=== PATIENT | male | born 1935 | race Caucasian/White ===

== ENCOUNTER 2018-10-23 08:34 | Inpatient (IN) | payer MEDICARE ==
[~2018-10-23] VITALS: Ht 167.6 cm; Wt 103.5 kg
[2018-10-23 08:37] VITALS: Ht 167.6 cm; Wt 103.5 kg
--- NOTE | 2018-10-23 08:43 | NUR ---
PT WAS BROUGHT IN BY AMBULANCE W/CC OF ALOC. PER MEDICS " FOUND HIM ALTERED THIS MORNING". PT ARRIVED ALTERED AND ON NON-REBREATHER MASK. LABORED BREATHING PRESENT. COURSE CRACKLES AND RHONCI AUSCULTATED. PT'S SKIN IS HOT TO TOUCH. DR. WORTHINGTON AT BEDSIDE FOR MSE. RT ALSO AT BEDSIDE. WILL CTM.
--- NOTE | 2018-10-23 09:08 | NUR ---
MEDICATED ORDERED. PLEASE SEE EMR. 1L OF NS INFUSING PER SEPSIS PROTOCOL.
[2018-10-23 09:09] LABS: UA SPECIFIC GRAVITY 1.015 (1.005-1.035); microscopic required? YES; urine erythrocyte TRACE (NEGATIVE)
[2018-10-23 09:14] LABS: PLATELET COUNT 435 x10^3mcL (130-400); RED CELL DISTRIBUTION WIDTH 21.4 % (11.5-14.5)
[2018-10-23 09:30] LABS: CALCIUM 9.3 mg/dL (8.5-10.1); CARBON DIOXIDE 27.5 mmol/L (21-32); CHLORIDE SERUM 104 mmol/L (98-107); CREATININE SERUM 1.2 mg/dL (0.7-1.3); GLUCOSE SERUM 116 mg/dL (74-106); POTASSIUM SERUM 3.1 mmol/L (3.5-5.1); SODIUM SERUM 141 mmol/L (136-145)
[2018-10-23 09:33] LABS: AMPHETAMINE QUAL UR NONE DETECTED (See below)
[2018-10-23 09:34] LABS: ALKALINE PHOSPHATASE 121 U/L (46-116); ALT/SGPT 18 U/L (16-63); AST/SGOT 27 U/L (15-37); TOTAL PROTEIN, SERUM 6.7 g/dL (6.4-8.2)
--- NOTE | 2018-10-23 09:38 | NUR ---
MEDICATED ORDERED. PLEASE SEE EMR.
--- NOTE | 2018-10-23 09:38 | NUR ---
AT BEDSIDE STS PT HAD STROKE RECENTLY AND HAS LEFT SIDED WEAKNESS. REPORTS PT USES WALKER TO AMBULATE AND HAD A MECHANICAL SLIP AND FALL. DENIES LOC AT THE TIME OF FALL. NO OBVIOUS DEFORMITY NOTED TO EXTREMETIES. PT'S STS PT IS USUALLY A/O X4 AND GCS 15. DR. WORTHINGTON MADE AWARE. WILL CTM.
[2018-10-23 09:45] LABS: ALBUMIN 3.2 g/dL (3.4-5.0)
--- NOTE | 2018-10-23 09:45 | NUR ---
DR. WORTHINGTON MADE AWARE OF DECREASED BP AND O2 SAT WHILE ON 4L OF O2 VIA NC.
[2018-10-23] MEDS ORDERED: FUROSEMIDE40 MG PO (09:46)
[2018-10-23] MEDS ORDERED: TAMSULOSIN HYD0.4 M1 PO (09:47)
[2018-10-23] MEDS ORDERED: MIRAPEX0.25 MG PO (09:47)
[2018-10-23] MEDS ORDERED: LIPI10 PO (09:47)
[2018-10-23] MEDS ORDERED: NEU300 PO (09:48)
[2018-10-23] MEDS ORDERED: SINGULAIR10 MG PO (09:48)
[2018-10-23 09:57] LABS: BAND NEUTROPHIL 9 % (0-10); BASOPHIL 0 % (0-2); MONOCYTE 5 % (0-7); SEGMENTED NEUTROPHILS 85 % (37-75)
[2018-10-23 09:59] LABS: PLATELET MORPHOLOGY PLATELETS INCREASED; rbc morphology (normal/abnorm) ABNORMAL (NORMAL)
--- NOTE | 2018-10-23 10:19 | NUR ---
MEDICATED ORDERED. PLEASE SEE EMR.
--- NOTE | 2018-10-23 10:24 | NUR ---
PT RESPONDING TO SIMPLE COMMANDS SUCH "OPEN EYES, OPEN MOUTH, STICK OUT TONGUE". PT CONTINUES TO BE NON-VERBAL. PT'S NC SWITCHED TO MASK AND O2 INCREASED TO 10L DUE TO 88% SPO2 ON 4L OF O2 VIA NC.
--- NOTE | 2018-10-23 10:28 | NUR ---
PT AWAKE AND ALERT. ABLE TO ANSWER SIMPLE QUESTIONS. ASKING WHAT TIME IT IS. ABLE TO TAKE ORAL TEMPERATURE. DR. WORTHINGTON MADE AWARE.
[2018-10-23 11:08] LABS: MAGNESIUM 1.7 mg/dL (1.8-2.4); PHOSPHOROUS 1.9 mg/dL (2.5-4.9)
--- NOTE | 2018-10-23 11:41 | NUR ---
PT ACCIDENTALLY DC'D LFA IV. SITE CLEANSED AND BANDAID APPLIED. NS FLUIDS AND ANTIBIOTIC SWITCHED TO RT WRIST IV SITE. PT TOLERATING WELL. WILL CTM.
--- NOTE | 2018-10-23 12:22 | NUR ---
REPORT GIVEN TO ELI KILLIAN TO ASSUME CARE OF PT.
--- NOTE | 2018-10-23 12:40 | NUR ---
PT ARRIVED TO UNIT FROM ER VIA GURNEY ACCOMPANIED BY PERSONAL LINES UNDERWRITER AND EMT. PT ABLE TO SCOOT TO ICU BED WITH NO INCIDENT. PT A/O TO NAME, , DATE AND SITUATION. SPEECH IS NOTED TO BE GARBLED, PT HAS HX OF CVA WITH LEFT SIDED WEAKNESS. ABLE TO FOLLOW ALL COMMANDS AND MAKE NEEDS KNOWN. ON NON-REBREATHER MASK 15L O2 WITH O2 SAT 99%. BREATH SOUNDS ALSCULATED CRACKLES/RHONCHI BILAT. BREATHING SLIGHTLY LABORED WITH RR 27. DENIES ANY SOB OR RESP DISTRESS. HOB ELEVATED. PT WITH SOME CONGESTION NOTED, BUT NO ACTIVE COUGH. ENCOURAGED PT TO COUGH UP ANY PHLEGM. NSR WITH OCCASIONAL PAC'S NOTED ON PETROLEUM ENGINEERING TEACHER. NIBP 86/38 MAP 67 HR 62. DENIES ANY CHEST PAIN OR DISCOMFORT. IVF NS AT 150ML/HR INFUSING VIA IV TO RIGHT WRIST. IV SITE PATENT AND CLEAR. BOWEL SOUNDS ACTIVE X 4 QUADRANTS. ABD OBESE/SOFT. DENIES ANY N/V. HERNANDEZ CATH DRAINING WAYNE URINE FREELY TO GRAVITY. SKIN INTACT WITH PURPLE DISCOLORATION TO LFA NOTED. NO ACTIVE/OPEN WOUNDS. NO EDEMA NOTED. PULSES MODERATE BILAT THROUGHOUT. PT ORIENTED TO ROOM AND CALL LIGHT. BED IN LOW POSITION SIDE RAILS UP X3. CALL LIGHT IN REACH. WILL CONT TO MONITOR.
--- NOTE | 2018-10-23 12:49 | NUR ---
Total fluid resuscitation amount ordered for patient is 3000 mls. At time of admission/transfer to ICU BED 8, 3000 mls have infused. Last BP was 101/60 and ELI KILLIAN is aware that BP will need to be reassessed after fluid infusion completed.
[2018-10-23 14:19] VITALS: BP 86/38
--- NOTE | 2018-10-23 14:56 | NUR ---
BEDSIDE NURSING SWALLOW SCREEN DONE AT THIS TIME. PT ABLE TO EAT APPLESAUCE, SWALLOW ICE CHIPS AND DRINK WATER WITH NO COUGHING NOTED. PT IN HIGH AVERY'S POSITION. CALL LIGHT IN REACH. WILL CONT TO MONITOR.
[2018-10-23 16:59] VITALS: BP 112/72
--- NOTE | 2018-10-23 18:10 | NUR ---
DR RIOS AT BEDSIDE. ALL UPDATES GIVEN. PER DR RIOS, HEPARIN TO BE STARTED ON PATIENT. NO FURTHER ORDERS.
--- NOTE | 2018-10-23 18:56 | NUR ---
PT BOLUSED WITH 6,000 UNITS HEPARIN IVP AND INITIATED HEPARIN DRIP AT 1,200 UNITS/HR PER HEPARIN DRIP PROTOCOL. PTT FOR 0100. PRIMARY RN MADE AWARE.
--- NOTE | 2018-10-23 19:06 | NUR ---
REPORT GIVEN TO ELI SMITH ALL QUESTIONS ANSWERED.
[2018-10-23 19:15] VITALS: BP 119/69
--- NOTE | 2018-10-23 19:15 | NUR ---
RECEIVED PT AOX3 TO PERSON/PLACE/TIME, ABLE TO RESPOND TO COMMANDS AND MAKE NEEDS KNOWN. PT APPEARS RESTLESS AND CONFUSED AT TIMES. PUPIS 2MM SLUGGISH RESPONSE TO LIGHT B/L, PERRLA.TRACHEA MIDLINE, NO DRAINAGE TO EENT. NO EENT COMPLAINTS. LUNG SOUNDS COARSE CRACKLES BUL, DIMINISHED BASES. PT ON 15 VENTURI MASK @ 50% FIO2. CHEST RISE/FALL SYMMETRIC, PT BREATHING TACHYPNEIC.S1/S2 SOUNDS HEARD, NO S/S OR REPORT OF CHST PAIN. PT ON FULL MEMBERSHIP DIRECTOR, SINUS TACH WITH OCCASSIONAL PVC'S.SKIN COLOR CONSISTENT WITH ETHNICITY. PULSES MODERATE X4 EXTREMITIES, CAP REFILL <3 SEC X4 EXTREMITIES. NO EDEMA. NS INFUSING @ 150 ML/HR. HEPARIN GTT @ 1200 UNITS/HR.GEN WEAKNESS. BED REST AT THIS TIME. NO CONTRACTURES/DEFORMITIES, PT ABLE TO TURN/REPOSITION SELF Q2H. NO JOINT SWELLING/TENDERNESS. HX OF RESTLESS LEG SYNDROME.PUREED DIET. NO S/S OF N/V.HYPOACTIVE BOWEL SOUNDS X4 QUADRANTS, ABD FIRM/ROUND. NO BM AT THIS TIME.F/C DRAINING TO GRAVITY WAYNE URINE. NO PENILE EDEMA/DISCHARGE NOTED.IV TO RIGHT FOREARM, RIGHT WRIST, PORTS PATENT, NO S/S OF INFILTRATION DRESSING CDI. LEFT FOREARM DISCOLORATION NOTED, BLE SCATTERED ECCHYMOSIS.PT RESTLESS AT THIS TIME, RELAXATION TECHNIQUES USED. BED AT LOWEST SETTING, CALL LIGHT WITHIN REACH, HOB ELEVATED 30 DEGREES, TEACHING PROVIDED, WILL CONT TO MONITOR.
--- NOTE | 2018-10-23 19:40 | NUR ---
DR. WALL AT BEDSIDE FOR ASSESSMENT SPEAKING WITH PATIENT ON POC AND EVENTS LEADING UP TO HOSPITAL STAY. UPDATES PROVIDED, QUESTIONS ANSWERED. PER DR. WALL ORDER C-DIFF STOOL CULTURE IF PT HAS A BOWEL MOVEMENT, WILL INPUT ORDERS.
--- NOTE | 2018-10-23 20:55 | NUR ---
RICKY GIBBS AT BEDSIDE FOR BREATHING TREATMENT.
--- NOTE | 2018-10-23 21:15 | NUR ---
RT RICKY CHANGED OXYGEN DEVICE TO 5L OXYMIZER. PT SATURATING NOW @ 97%, NO S/S OR REPORT OF RESP DISTRESS, DENIES SOB AT THIS TIME. WILL CONT TO MONITOR.
--- NOTE | 2018-10-23 22:53 | NUR ---
PT HAD A SMALL FORMED BROWN BM, PT PERIAREA CLEANED AND STOOL SENT TO LAB FOR C-DIFF CULTURE PER DR. WALL. WILL CONTINUE TO MONITOR.
[2018-10-23 23:08] VITALS: BP 115/69
--- NOTE | 2018-10-24 01:30 | NUR ---
PT HAD A SMALL FORMED BROWN BM, PT STATING "GET IT OUT!". PT PERIAREA CLEANED AT THIS TIME.
--- NOTE | 2018-10-24 02:38 | NUR ---
LAB CALLED, PTT 94.0. HEPARIN GTT INFUSION HELD AT THIS TIME FOR ONE HOUR AND WILL TITRATE TO 900 UNITS/HR AND ORDER PTT PER HEPARIN DRIP PROTOCOL.
[2018-10-24 02:46] VITALS: BP 115/69
[2018-10-24 03:01] VITALS: BP 92/59
--- NOTE | 2018-10-24 03:38 | NUR ---
HEPARIN GTT TURNED BACK ON, TITRATED TO 900 UNITS/HR PER HEPARIN DRIP PROTOCOL. WILL ORDER NEXT PTT.
--- NOTE | 2018-10-24 03:42 | NUR ---
PT HAD A MODERATE FORMED BROWN BM, PT STATING "GET IT OUT!". PT PERIAREA CLEANED AT THIS TIME.
--- NOTE | 2018-10-24 05:06 | NUR ---
GANTRY CRANE OPERATOR АННА AT BEDSIDE FOR BLOOD DRAW.
[2018-10-24 05:30] LABS: BASOPHIL % 0.1 % (0-2)
[2018-10-24 05:31] LABS: PLATELET COUNT 405 x10^3mcL (130-400); RED CELL DISTRIBUTION WIDTH 21.9 % (11.5-14.5)
--- NOTE | 2018-10-24 05:36 | NUR ---
DR. BOYD MADE AWARE VIA TELEPHONE OF PTS CRITICAL LAB VALUE OF WBC 47.6. NO NEW ORDERS AT THIS TIME.
[2018-10-24 05:47] LABS: CALCIUM 7.7 mg/dL (8.5-10.1); CARBON DIOXIDE 27.9 mmol/L (21-32); CHLORIDE SERUM 105 mmol/L (98-107); CREATININE SERUM 1.1 mg/dL (0.7-1.3); GLUCOSE SERUM 150 mg/dL (74-106); MAGNESIUM 1.8 mg/dL (1.8-2.4); PHOSPHOROUS 3.2 mg/dL (2.5-4.9); POTASSIUM SERUM 4.4 mmol/L (3.5-5.1); SODIUM SERUM 140 mmol/L (136-145)
--- NOTE | 2018-10-24 06:10 | NUR ---
UPDATED DR. BONILLA ON PT'S STATUS AND LAB VALUES. NO NEW ORDERS AT THIS TIME.
--- NOTE | 2018-10-24 06:34 | NUR ---
DR. BONILLA AT BEDSIDE ASSSESING PT AND SPEAKING WITH PT ON POC.
--- NOTE | 2018-10-24 07:10 | NUR ---
GAVE REPORT TO ELI LEE. UPDATES GIVEN, QUESTIONS ANSWERED.
--- NOTE | 2018-10-24 07:30 | NUR ---
RC'D PT RESTING IN BED WITH NO APPARENT SIGNS OF DISTRESS. A/A/O/X4, SPEECH CLEAR AND APPROPRIATE. DENIES SHEPHERD/DIZZINESS. EQUAL CHEST RISE/FALL. PT ON 5L O2 VIA OXYMIZER. ON CARDIA MONITOR WITH NSR. DENIES CHEST PAIN/PRESSURE. HEPARIN DRIP INFUSING AT 900UN AT THIS TIME. WILL ADJUST PER HEPARIN DRIP PROTOCOL. CHEST WALL STABLE. PALP PULSES TO ALL EXTREMITIES. SKIN COLOR CONSISTENT TO ETHNICITY. BLE SCDS. GENERALIZED WEAKNESS. PT ABLE TO REPOSITION SELF. ABDOMEN OBESE AND ROUND. PT DENIES N/V. TOLERATES DIET. HERNANDEZ CATH WITH WAYNE URINE DRAINING TO GRAVITY, WNL. BED IN LOW POSITION. CALL LIGHT IN REACH. WILL CONTINUE TO MONITOR
--- NOTE | 2018-10-24 07:40 | NUR ---
PT REPORTS BM AT THIS TIME, SOFT/FORMED.
--- NOTE | 2018-10-24 08:25 | NUR ---
AM MEDICATIONS GIEN. PT TOLERATED WELL.
[2018-10-24 08:39] VITALS: BP 128/71
--- NOTE | 2018-10-24 09:43 | NUR ---
RC'D CALL FROM JARON SANDHU. PROVIDED WITH UPDATE AND CASE MANAGEMENT INFORMATION
--- NOTE | 2018-10-24 10:39 | NUR ---
PTT 36.9. PER HEPARIN PROTOCOL, PT REBOLUSED WITH HEPARIN 4000UN AND RATE INCREASED BY 200UN/HR. HEPARIN DRIP INFUSING AT 1100UN/HR AT THIS TIME.
[2018-10-24] MEDS ORDERED: LIPITOR80 MG PO (11:06)
[2018-10-24] MEDS ORDERED: ECO81 PO (11:06)
--- NOTE | 2018-10-24 11:24 | NUR ---
RT PRESENT AT BEDSIDE PROVIDING TX AT THIS TIME.
--- NOTE | 2018-10-24 12:31 | NUR ---
PT RESTING IN BED WITH NO APPARENT SIGNS OF DISTRESS. CHEST RISE/FALL EQUAL. ON 5L O2 VIA OXYMIZER, PT DENIES SOB. ON PV DESIGN ENGINEER WITH NSR. PT DENIES CHEST PAIN/PRESSURE. HEPARIN DRIP INFUSING AT 1100UN/HR, PT TOLERATING WELL. WILL ADJUST ACCORDINGLY PER HEPARIN PROTOCOL. NO ACUTE SKIN CHANGES NOTED AT THIS TIME. IV PATENT AND INTACT. HERNANDEZ CATH WITH WAYNE URING DRAINING TO GRAVITY, WNL. BED IN LOW POSITION. CALL LIGHT IN REACH. WILL ENDORSE TO CABINET ASSEMBLER RN
--- NOTE | 2018-10-24 15:45 | NUR ---
RC'D CALL FROM PTS , CALL TRANSFERRED TO PT. PT WITH NO S/S OF DISTRESS. WILL CONT TO MONITOR
--- NOTE | 2018-10-24 15:47 | NUR ---
PTT 37.7 PER HEPARIN PROTOCOL REBOLUS WITH 4000UN AND INCREASE INFUSION RATE 200UN/HR. HEPARIN DRIP INFUSING AT 1300UN/HR AT THIS TIME. RN MIN PRESENT AT BEDSIDE TO VERIFY. PT TOLERATED WELL. DENIES DISCOMFORT AT THIS TIME. WILL CONTINUE TO MONITOR
--- NOTE | 2018-10-24 15:52 | NUR ---
OT PERFORMING SWALLOW EVAL AT BEDSIDE AT THIS TIME. WILL CONT TO MONITOR
--- NOTE | 2018-10-24 15:58 | NUR ---
PER SPEECH THERAPIST, PT DOES NOT HAVE DENTURES AT THIS TIME, TO BRING. SPEECH THERAPIST TO RETURN TOMORROW TO [facility] PT
--- NOTE | 2018-10-24 16:01 | NUR ---
PT WAS SEEN FOR DYSPHAGIA. PT WAS ABLETOS AFELY SWALLOW PUREE DIET WITH THIN LIQUID. HOWEVER, PT HAD MASTICATION SKILLS DIFFICULTY WITH REGULAR DIET RECOMMENDATION PUREE DIET WITH THIN LIQUID SMALL BITES AND SIPS ONLY.
[2018-10-24 16:58] VITALS: BP 118/72
--- NOTE | 2018-10-24 17:44 | NUR ---
PT REPORTS BM AT THIS TIME, LOOSE/SOFT. CLEANED AND REPOSITIONED
--- NOTE | 2018-10-24 18:59 | NUR ---
PT RESTING IN BED WITH NO APPARENT SIGNS OF DISTRESS. A/A/O/X4, SPEECH CLEAR AND APPRORPIATE. DENIES SHEPHERD/DIZZINESS. PT ANXIOUS AT TIMES. EQUAL CHEST RISE/FALL. PTON 5L O2 VIA OXYMIZER, PT DENIES SOB. NO RESP DISTRESS NOTED NO ACUTE SKIN CHANGES NOTED AT THIS TIME. PENDING SWALLOW EVAL WHEN BRINGS PTS DENTURES. CURRENT DIET PUREE AT THIS TIME. NO ACUTE SKIN CHANGES NOTE. IV PATENT AND INTACT. HEPARIN DRIP INFUSING AT 1300UN/HR AT THIS TIME, NEXT PTT TO BE DRAWN AT 1930, WILL ENDORSE TO ECG TECHNICIAN RN. PT ON REFRACTIVE SURGEON WIT NSR, DENIES CHEST PAIN/PRESSURE. PT DENIES PAIN AT THIS TIME. REPORTS FEELING RESTLESS AT TIMES. HERNANDEZ CARE AND PT CLEANED, NEW GOWN AND BEDDING PROVIDED. BED IN LOW PSOTIION. CALL LIGHT IN REACH. WILL ENDORSE TO ECG TECHNICIAN RN
--- NOTE | 2018-10-24 20:00 | NUR ---
Seen and examined by Dr Garza with no new orders. Will continue to monitor.
[2018-10-24 22:03] VITALS: BP 112/78
[2018-10-25] VITALS (8 sets, daily range): BP systolic 123–141; BP diastolic 52–83
--- NOTE | 2018-10-25 00:15 | NUR ---
Seen and examined by Dr. Mei with no new orders. Will continue to monitor.
[2018-10-25 05:37] LABS: BASOPHIL % 0.1 % (0-2); PLATELET COUNT 360 x10^3mcL (130-400)
[2018-10-25 05:43] LABS: CALCIUM 7.9 mg/dL (8.5-10.1); CARBON DIOXIDE 26.5 mmol/L (21-32); CHLORIDE SERUM 106 mmol/L (98-107); GLUCOSE SERUM 151 mg/dL (74-106); MAGNESIUM 2.1 mg/dL (1.8-2.4); PHOSPHOROUS 2.5 mg/dL (2.5-4.9); SODIUM SERUM 140 mmol/L (136-145)
[2018-10-25 05:48] LABS: RED CELL DISTRIBUTION WIDTH 22.6 % (11.5-14.5)
--- NOTE | 2018-10-25 07:25 | NUR ---
AAO X3-4.FORGETFUL AT TIMES.DENIES ANY PAIN/DISCOMFORT.LUNGS DIM BILAT.WITH NON PRODUCTIVE COUGH.ON 5 L OXIMIZER WITH SPO2 AT 100 %. IVF NS GOING AT 150 ML/HR INFUSING WELL.HEPARIN GTT AT 1500 MG/HR INFUSING WELL ON R AC.BUE WITH ECCYMOSIS.HERNANDEZ DRAINING TO GRAVITY YELLOW IN COLOR.CALL LIGHT WITHIN REACH.INSTRUCTED TO CALL FOR ANY PAIN/DISCOMFORT.WILL CONTINUE TO MONITOR PT.
--- NOTE | 2018-10-25 09:15 | NUR ---
PT WHEEZING A LOT.ALSO RESTLESS.DESATED TO 80%.PUT HIM BACK TO OXIMIZER AT 5 L SPO2 WENT UP TO 100 %.PT CALMED DOWN A LITTLE BIT.ALSO PAGED FOR ORDERS AND RT FOR BREATHING TREATMENT.
--- NOTE | 2018-10-25 09:46 | NUR ---
AND AT BEDSIDE.UPDATED PT AND FAMILY ABOUT PT CONDITION AND PLAN OF CARE,PT AND FAMILY VERBALIZES UNDERSTANDING.
--- NOTE | 2018-10-25 09:55 | NUR ---
GAVE PT LASIX 40 MG IVP X 1 ORDERED.ALSO DECREASED FLUID TO NS AT 10 ML/HR ORDERED.WILL CONTINUE TO MONITOR PT.
--- NOTE | 2018-10-25 10:47 | NUR ---
RECHECKED PT CLAIMS TO FEEL A LOT BETTER.
--- NOTE | 2018-10-25 11:00 | NUR ---
PT DIAURESED 860 ML OF URINE AFTER LASIX 40 MG IVP ORDERED.
--- NOTE | 2018-10-25 11:22 | NUR ---
PTT=61.2.NO CHANGES ON THE HEPARIN GTT.RESULT THERAPEUTIC.ORDERED NEXT PTT AT 1330.
--- NOTE | 2018-10-25 11:51 | NUR ---
DAVE CALLED MGT.INFORMED RN THAT SHE GOT THE ORDER ABOUT PT STABLE FOR TRANSFER. WILL HAVE DOCTOR FR SANDHU AND COMMUNICATE THEN SOMEBODY FR. SANDHU WILL CALL THE NURSES STATION FOR BED # AND TRANSPORT.INFORMED CHARGE NURSE CISCO OF THE UPDATE.
--- NOTE | 2018-10-25 12:52 | NUR ---
SPOKE WITH EDINSON AT [facility] AND PROVIDED FAX NUMBER FOR ICU. PER EDINSON, PATIENT WILL BE TRANSFERRED SOME TIME TODAY. AWAITING RETURN TELEPHONE CALL WITH ACCEPTING MD AND ROOM NUMBER. ENDORSED INFORMATION TO PRIMARY RN JANICE.
--- NOTE | 2018-10-25 13:00 | NUR ---
PT TOLERATING 3 L NASAL CANULA WELL.SPO2 @ 96%
--- NOTE | 2018-10-25 14:03 | NUR ---
Initial Nutrition Assessment: IC08/A ARIE ELMORE HR Dx: Sepsis, PNA PMHx: COPD, asthma, BPH, hyperlipidemia and restless leg syndrome, hyperlipedemia PSHx: Hernia repair Labs: BG 151H, CA 7.9L, WBC 24.0H Meds: Aspirin, Flomax, Lipitor, miralex, heparin, Zofran, zosyn Diet: Puree PO Intake: (10/24) 40% average Ht: 167.64 cm (66") Wt: 103.5 kg (227#) BMI: 36.8 kg/m2 (obesity) Bed scale: 227# IBW: 142# (64 kg) %IBW: 159 UBW: 227# Age: 83/M Food Allergies: NKFA Skin: BUE ecchymosis Vincenzo: 19 Edema: none GI: Last BM: 10/25 Per H&P, Pt is a 83 year old male with prior history of COPD, asthma, BPH, hyperlipidemia and restless leg syndrome brought in by paramedics for worsening shortness of breath. Per the patient's , he was scheduled to receive physical therapy in his home but had refused and had become increasingly agitated. RDN Visit (10/25): Pt was alert and oriented with son and at bedside. Pt said that he does not like baby (puree) diet and wants regular food. Patient loves ice-cream and had requested it which was granted. Diet education about COPD and low cholesterol was provided but patient seemed reluctant to make any lifestyle changes. Paged Dr. Robertson to discuss recommendations waiting for call back. Problem with: N/V/D/C: no Problems with: Chewing/Swallowing: no Current appetite: poor Recent wt change: none %wt change: none Vitamin/Supplement use: none Special diet at home: Regular Physical activity: none Nutrition education given: Diet education about COPD and low cholesterol was provided. [facility] handout on 'COPD Nutrition Therapy' was provided. Concepts such as portion control, low fat food choices, healthy eating choices were discussed. Patient seemed reluctant to make any lifestyle changes. Food-drug interactions: Lipitor- avoid grapefruit, Heparin- consistent intake of vitamin K Education given: Yes Estimated Nutritional Needs Based on adjusted body weight 73 kg Energy: 1605-3427 kcal/d (25-30 kcal/kg) Protein: 73-87.6 g/d (1.0-1.2 g/kg)- PNA, preserve LBM Fluid: 4001-4547 ml/d (1 ml/kcal) or per doctor Nutrition Diagnosis 1. Morbid Obesity related to patient not ready to make diet/lifestyle changes as evidenced by BMI 36.8 kg/m2. 2. Increased nutrient needs related to sepsis as evidenced by WBC 24.0. Intervention 1. Recommend progressing to cardiac diet once medically appropriate and tolerated. Monitor/Evaluate Goal: PO intake at least 75% of estimated needs Monitor: PO intake, Labs, GI function F/U in 3-5 days as moderate risk 10/28-
--- NOTE | 2018-10-25 14:03 | NUR ---
1. Recommend progressing to cardiac diet once medically appropriate and tolerated.
--- NOTE | 2018-10-25 14:15 | NUR ---
PT HAD A LARGE BM.CLEANED AND MADE HIM COMFORTABLE.PT SLEPT AFTER.
--- NOTE | 2018-10-25 14:40 | NUR ---
PATIENT'S PTT 58.0.. PATIENT ON HEPARIN DRIP AND THERAPEUTIC X 2. PRIMARY RN ELISA MADE AWARE.
--- NOTE | 2018-10-25 14:41 | NUR ---
PTT=58.0.RESULT THERAPEUTIC PER HEPARIN PROTOCOL.NO CHANGE IN CURRENT RATE.ORDERED NEXT PTT AT 0500 TOMORROW.
--- NOTE | 2018-10-25 16:07 | NUR ---
PT COMFORTABLE NO COMPLAINTS.
--- NOTE | 2018-10-25 17:18 | NUR ---
GOT A CALL FROM EDINSON.PT HAS A BED IN [facility] [id number] AND THE PHONE TO GIVE REPORT IS TEL#[phone].AND RECEIVING DRCelestinaIS AND CUSTOMER PROGRAM MANAGER TIME IS 2100
--- NOTE | 2018-10-25 18:19 | NUR ---
CALLED REPORT TO CAROL CHARGE NURSE IN [facility].ALSO INFORMED HER OF COMMUNITY BOARD MEMBER TIME AT 2100
--- NOTE | 2018-10-25 18:37 | NUR ---
NO SIGNIFICANT CHANGE NOTED.WILL ENDORSE TO NEXT SHIFT.
--- NOTE | 2018-10-25 20:26 | NUR ---
[facility] here at this time. Pt alert and orient x4. No distress noted. Pt given all his night meds at this time. Report given to [facility] nurse Omar BENITEZ. Pt transfer via gurney at this time. Pt accompanied by 3 personnel at this time. Will continue to monitor in [facility].
== END 2018-10-25 20:45 | disposition short-term general hospital (02) | DRG 871 ==
LOC: ED 08:34 → IC 10:06
PROVIDERS: Emergency Medicine; ADMIT Internal Medicine
DX: A41.9 Sepsis, unspecified organism (principal); I21.4 Non-ST elevation (NSTEMI) myocardial infarction; J96.01 Acute respiratory failure with hypoxia; J69.0 Pneumonitis due to inhalation of food and vomit; J44.1 Chronic obstructive pulmonary disease with (acute) exacerbation; R65.20 Severe sepsis without septic shock; E87.6 Hypokalemia; E78.5 Hyperlipidemia, unspecified; E83.39 Other disorders of phosphorus metabolism; I49.3 Ventricular premature depolarization; G25.81 Restless legs syndrome; Z68.32 Body mass index [BMI] 32.0-32.9, adult; Z87.891 Personal history of nicotine dependence; Z86.73 Personal history of transient ischemic attack (TIA), and cerebral infarction without residual deficits
CPT/HCPCS: 36600; 82962; 92526-GN; 92610; A4628; G0378; G0480; J0132; J1644; J1940; J1956; J2543; J2930; J3370; J3490; J7030; J7050; J7613; J7620; J7644; Q0092